=== PATIENT | female | born 1980 | race Caucasian/White ===

== ENCOUNTER 2021-05-22 10:25 | Emergency (ER) | payer OTHER ==
[~2021-05-22] VITALS: Ht 170.2 cm; Wt 100.2 kg
[2021-05-22 10:29] VITALS: BP 120/78
--- NOTE | 2021-05-22 10:34 | NUR ---
Pt ambulated to ER bed 1 with a steady gait.
--- NOTE | 2021-05-22 10:40 | NUR ---
DR GOLDEN BEDSIDE WITH PT
--- NOTE | 2021-05-22 10:56 | NUR ---
KAR MELANIE SWAB COLLECTED BEDSIDE. RN WALKED SWAB OVER TO LAB
--- NOTE | 2021-05-22 11:19 | NUR ---
41 Y/O FEMALE C/O N/V/D, BODY ACHES AND RUNNY NOSE X1 WEEK. 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 PT STATES "SHE WAS TOLD FROM WORK TO GET TESTED FOR COVID SHWOING IF SHE WAS NEGATIVE OR POSITIVE." NO COVID VACCINE PMH:DENIES NKDA
== END 2021-05-22 12:18 | disposition home or self-care (01) ==
LOC: MED 10:25
DX: J06.9 Acute upper respiratory infection, unspecified (principal); Z20.822 Contact with and (suspected) exposure to COVID-19
CPT/HCPCS: 99283